=== PATIENT | female | born 1940 | race Caucasian/White ===

== ENCOUNTER 2024-05-13 16:59 | Emergency (ER) | payer MEDICARE, BC ==
[~2024-05-13] VITALS: Ht 162.6 cm; Wt 68.0 kg
[~2024-05-13 16:59] MED LIST: ONDA-243 PO
[2024-05-13 17:01] VITALS: BP 147/80; PULSE 81; RESP 16; O2SAT 96
[2024-05-13] MEDS: acetaminophen 325mg tablet PO ONE (18:35)
[2024-05-13 19:40] VITALS: TEMP 98.2
== END 2024-05-13 19:49 | disposition home or self-care (01) ==
LOC: ER 17:00
DX: S40.011A Contusion of right shoulder, initial encounter (principal); S80.01XA Contusion of right knee, initial encounter; S09.90XA Unspecified injury of head, initial encounter; W18.39XA Other fall on same level, initial encounter; Y93.89 Activity, other specified; Y92.89 Other specified places as the place of occurrence of the external cause; Y99.8 Other external cause status
CPT/HCPCS: 70450; 73030; 73564; 93971; 99284